=== PATIENT | male | born 1995 | race Two or more races ===

== ENCOUNTER 2024-09-19 20:06 | Emergency (ER) | payer MEDICAID, SELFPAY ==
--- NOTE | ~2024-09-19 | XR_ITS ---
CLINICAL HISTORY: trauma 4 view right hand Comparison: None Findings: No acute fractures or dislocations. Old healed right 5th metacarpal fracture. No significant arthritic change. No erosions. No radiopaque foreign body. IMPRESSION: 1. No acute findings This document has been electronically signed by: Binu Springer MD on 09/19/2024 20:30:21
[2024-09-19 20:09] VITALS: BP 100/70; PULSE 74; RESP 17; TEMP 36.7; O2SAT 99; BMI 23.1
--- NOTE | 2024-09-19 20:11 | ED.GENADULT ---
HPI - General Adult General Chief complaint: Extremity Injury, Upper Stated complaint: RT hand injury Time Seen by Provider: 09/19/24 21:41 Source: patient Mode of arrival: ambulatory Limitations: no limitations History of Present Illness ED Provider: HPI narrative: Patient apparently hit the wall with his right hand in anger comes here with swelling of the right 5th metacarpal does have history of old fracture in the past no other injury Related Data Previous Rx's ?Medication ?Instructions ?Recorded ibuprofen 600 mg tablet 600 mg PO Q6H PRN fever or pain 09/19/24 #30 tabs Allergies Allergy/AdvReac Type Severity Reaction Status Date / Time No Known Allergies Allergy Verified 09/19/24 20:10 Review of Systems Review of Systems: Yes all other systems are reviewed and are negative [facility] Social History Social History Smoked in Last 30 Days: No Use of substances other than those prescribed or required for medical reasons: No Advance Directives: No Advance Directives Information Provided: No Do you have a plan to hurt others: No Plan Physical Exam ED Vital Signs: Vital Signs - 24 hr 09/19/24 20:09 09/19/24 22:43 Temperature 98.1 F 98.1 F Pulse Rate 74 74 Respiratory Rate 17 17 Blood Pressure 100/70 100/70 Pulse Oximetry 99 99 Oxygen Delivery Method Room Air Room Air BMI result Body Mass Index 23.1 Appearance: Alert. Oriented X3. No acute distress. Eyes: no pallor or icterus ENT: Pharynx normal. Oral Mucosa moist Neck: Normal inspection. Neck supple. CVS: Normal heart rate and rhythm. Pulses normal. Respiratory: No respiratory distress. Equal air entry bilateral, no wheezing/rales/rhonchi Abd: soft, not tender Skin: Skin warm and dry. Normal skin color. Normal skin turgor. Extremities: Soft tissue swelling of the right 5th metacarpal and tenderness neurovascular intact Neuro: Oriented X 3. Course Course Course Narrative: This is a rapid medical exam performed by Dorys Reza PA-C. The patient is a 29-year-old male who presents with right hand and wrist pain. Patient admits he struck a wall today, now with wrist and hand pain. On exam there was no swelling or deformity noted. The plan is to order x-rays of the wrist and hand. The patient was stable and can return to the waiting room pending his full medical assessment. Medications Administered Discontinued Medications Generic Name Dose Route Start Last Admin Trade Name [place] PRN Reason Stop Dose Admin Ibuprofen 600 mg 09/19/24 22:05 09/19/24 22:24 Ibuprofen 600 Mg Tablet PO 09/19/24 22:06 600 mg ONCE ONE Administration Medical Decision Making Medical Decision Making MDM Narrative: Patient's x-ray negative of the right hand showed old fracture advised to take ibuprofen wrist splint was applied Independent Interpretation I performed an independent interpretation of an: Plain X-Ray Interpretation: No new fracture Discharge Plan Discharge Clinical Impression: Contusion of hand, right Patient Disposition: Home, Self-Care Instructions: Contusion in Adults (ED) Additional Instructions: Wear the splint for support as advised for 3-4 weeks Ibuprofen for pain Prescriptions: New ibuprofen 600 mg tablet 600 mg PO Q6H PRN (Reason: fever or pain) Qty: 30 0RF Interventions: ED Discharge Assessment Last Done: 09/19/24 22:43 Discharge Date/Time: 09/19/24 22:44 Print Language: Luxembour[place]
--- NOTE | 2024-09-19 22:05 | PC.NURSE ---
Provider to bedside for primary eval.
[2024-09-19] MEDS: Ibuprofen 600 MG TABLET PO (22:24)
[2024-09-19 22:43] VITALS: BP 100/70; PULSE 74; RESP 17; TEMP 36.7; O2SAT 99
== END 2024-09-19 22:44 | disposition home or self-care (01) ==
PROVIDERS: Emergency Provider Internal Medicine
DX: S60.221A Contusion of right hand, initial encounter (principal); M79.641 Pain in right hand; X58.XXXA Exposure to other specified factors, initial encounter; Y93.9 Activity, unspecified; Y92.9 Unspecified place or not applicable; Y99.8 Other external cause status
CPT/HCPCS: 73110; 73130; 99283

== ENCOUNTER → 2024-09-19 20:10 | Outpatient (BNV) | payer SELFPAY | PROVIDERS: Visit Provider Radiology Vascular & Interventional Radiology | DX: S69.91XA Unspecified injury of right wrist, hand and finger(s), initial encounter (principal) | CPT/HCPCS: 73130 ==